=== PATIENT | male | born 1950 | race Caucasian/White ===

== ENCOUNTER 2016-07-06 18:49 | Emergency (ER) | payer BC, OTHER ==
[2016-07-06 19:26] VITALS: BMI 27.3
--- NOTE | 2016-07-06 20:36 | PDOC ---
History of Present Illness - General History Source: Patient Exam Limitations: No Limitations - History of Present Illness Initial Comments: 07/06/16 20:44 The patient is a 66 year old male with significant past medical history of ureterolithiasis s/p stents who presents to the ED with 24 hours of right-sided testicular pain. Patient reports he has been taking aleve with improvement. However, he noted increase swelling and redness to area with increasing pain. He denies any trauma to the area. Patient also denies flank pain, dysuria, hematuria, urgency, and frequency The patient denies fever, chills, cough, SOB, chest pain, and palpitations. The patient denies abdominal pain, nausea, vomiting, and diarrhea. Allergies: NKDA Social History: No alcohol, tobacco, or drug use reported. Past Surgical History: s/p kidney stents PCP: Dr. Raymundo Ahumada <Cesia Newton - Last Filed: 07/06/16 20:44> - General History Source: Patient <Max Jones - Last Filed: 07/06/16 21:32> - General Chief Complaint: Pain, Acute Stated Complaint: PCP SENT/TESTICULAR PAIN Time Seen by Provider: 07/06/16 20:26 Past History <Cesia Newton - Last Filed: 07/06/16 20:44> - Past Medical History Anemia: No Asthma: No Cancer: No Cardiac Disorders: No CVA: No COPD: No CHF: No Dementia: No Diabetes: No GI Disorders: No Disorders: No HTN: No Hypercholesterolemia: No Kidney Stones: Yes (LEFT STENT 10/11/14) Liver Disease: No Seizures: No Thyroid Disease: No - Surgical History Abdominal Surgery: No Appendectomy: No Cardiac Surgery: No Cholecystectomy: No Lung Surgery: No Neurologic Surgery: No Orthopedic Surgery: No - Psycho/Social/Smoking Cessation Hx Anxiety: Yes Suicidal Ideation: No Smoking Status: Yes Smoking History: Never smoked Have you smoked in the past 12 months: No Number of Cigarettes Smoked Daily: 0 If you are a former smoker, when did you quit?: 50 yrs ago Hx Alcohol Use: No Drug/Substance Use Hx: No Substance Use Type: None Hx Substance Use Treatment: No <Max Jones - Last Filed: 07/06/16 21:32> - Past Medical History Allergies/Adverse Reactions: Allergies Allergy/AdvReac Type Severity Reaction Status Date / Time No Known Allergies Allergy Verified 07/06/16 19:23 Home Medications: Ambulatory Orders Sertraline HCl [Zoloft -] 150 mg PO HS 11/26/11 Bupropion HCl [Wellbutrin Xl -] 150 mg PO DAILY 09/04/14 Gabapentin [Neurontin] 600 mg PO HS 09/04/14 Trazodone HCl [Desyrel -] 50 mg PO HS 09/04/14 Finasteride [Proscar -] 5 mg PO DAILY #30 tablet 10/11/14 Tamsulosin HCl [Flomax -] 0.4 mg PO DAILY #30 capsule 10/11/14 Tramadol HCl [Ultram -] 100 mg PO Q6H #20 tablet 10/11/14 Meth/Meblue/Sod Phos/Psal/Hyos [Uribel Capsule] 1 each PO BID 11/01/14 Sulfamethoxazole/Trimethoprim [Bactrim Ds Tablet] 1 each PO BID #30 tablet 11/01 Review of Systems - Review of Systems Able to Perform ROS?: Yes Comments:: 07/06/16 20:44 CONSTITUTIONAL: Absent: fever, chills, diaphoresis, generalized weakness, malaise, loss of appetite HEENT: Absent: rhinorrhea, nasal congestion, throat pain, throat swelling, difficulty swallowing, mouth swelling, ear pain, eye pain, visual Changes CARDIOVASCULAR: Absent: chest pain, syncope, palpitations, irregular heart rate, lightheadedness , peripheral edema RESPIRATORY: Absent: cough, shortness of breath, dyspnea with exertion, orthopnea, wheezing, stridor, hemoptysis GASTROINTESTINAL: Absent: abdominal pain, abdominal distension, nausea, vomiting, diarrhea, constipation, melena, hematochezia GENITOURINARY: +right testicular pain, swelling, and redness Absent: dysuria, frequency, urgency, hesitancy, hematuria, flank pain MUSCULOSKELETAL: Absent: myalgia, arthralgia, joint swelling SKIN: Absent: rash, itching, pallor NEUROLOGIC: Absent: headache, focal weakness or paresthesias, dizziness, unsteady gait, seizure, mental status changes, bladder or bowel incontinence <Cesia Newton - Last Filed: 07/06/16 20:44> *Physical Exam - Vital Signs Last Vital Signs Temp Pulse Resp BP Pulse Ox 98.5 F 96 H 18 151/85 100 07/06/16 19:23 07/06/16 19:23 07/06/16 19:23 07/06/16 19:23 07/06/16 19:23 - Physical Exam Comments: 07/06/16 20:45 GENERAL: Well developed, well nourished. Awake and alert. No acute distress. HEENT: Normocephalic, atraumatic. PERRLA, EOMI. No conjunctival pallor. Sclera are non- icteric. Moist mucous membranes. Oropharynx is clear. NECK: Supple. Full ROM. No JVD. Carotid pulses 2+ and symmetric, without bruits. No thyromegaly. No lymphadenopathy. CARDIOVASCULAR: Regular rate and rhythm. No murmurs, rubs, or gallops. Distal pulses are 2+ and symmetric. PULMONARY: No evidence of respiratory distress. Lungs clear to auscultation bilaterally. No wheezing, rales or rhonchi. ABDOMINAL: Soft. Non-tender. Non-distended. No rebound or guarding. No organomegaly. Normoactive bowel sounds. : Right testicle is bigger than left testicle. Right sided testicular tenderness. Scrotum is erythematous. MUSCULOSKELETAL Normal range of motion at all joints. No bony deformities or tenderness. No CVA tenderness. EXTREMITIES: No cyanosis. No clubbing. No edema. No calf tenderness. SKIN: Warm and dry. Normal capillary refill. No rashes. No jaundice. NEUROLOGICAL: Alert, awake, appropriate. Cranial nerves 2-12 intact. Moving all extremities. No gross focal neurological deficits. PSYCHIATRIC: Cooperative. Good eye contact. Appropriate mood and affect. <Cesia Newton - Last Filed: 07/06/16 20:44> - Vital Signs Last Vital Signs Temp Pulse Resp BP Pulse Ox 98.5 F 96 H 18 151/85 100 07/06/16 19:23 07/06/16 19:23 07/06/16 19:23 07/06/16 19:23 07/06/16 19:23 <Max Jones - Last Filed: 07/06/16 21:32> Medical Decision Making - Medical Decision Making 07/06/16 21:31 Dr. Jones: The scribe's documentation has been prepared under my direction and personally reviewed by me in its entirery. I confirm that the note above accurately reflects all work, treatment, procedures, and medical decision making performed by me. Patient found jt have a right sided epididymitis. patient will antibiotics here in the department. Advised to follow Up with his primary care physic <Max Jones - Last Filed: 07/06/16 21:32> *DC/Admit/Observation/Transfer - Attestations Scribe Attestion: 07/06/16 20:45 Documentation prepared by Cesia Newton, acting as medical assisting program director for Max Jones MD <Cesia Newton - Last Filed: 07/06/16 20:44> - Discharge Dispostion Admit: No <Max Jones - Last Filed: 07/06/16 21:32> Diagnosis at time of Disposition: Acute epididymitis - Discharge Dispostion Disposition: HOME Condition at time of disposition: Stable - Referrals Referrals: Raymundo Ahuamda MD [Primary Care Provider] - - Patient Instructions Printed Discharge Instructions: DI for Epididymitis
[2016-07-06] MEDS ORDERED: KETOROLAC TROMETHAMINE 60 MG/2 ML VIAL IM ONE (21:12)
[2016-07-06] MEDS ORDERED: AZITHROMYCIN 250 MG TABLET (FP) PO ONE (21:29)
[2016-07-06] MEDS ORDERED: IBUPROFEN 400 MG TABLET (FP) PO ONE ×2 (21:30→21:38)
[2016-07-06] MEDS ORDERED: AZITHROMYCIN 1 GM PACKET ONE (21:37)
[2016-07-06] MEDS ORDERED: cefTRIAXone SODIUM 1 GM VIAL ONE (21:38)
[2016-07-06] MEDS ORDERED: LIDOCAINE HCL/PF 1% SDV 5ML VIAL ONE (21:40)
[2016-07-06 22:47] VITALS: BP 122/74; PULSE 78; TEMP 98.6
--- NOTE | 2016-07-10 10:27 | EKG ---
Test Reason : Blood Pressure : / mmHG Vent. Rate : 085 BPM Atrial Rate : 085 BPM P-R Int : 140 ms QRS Dur : 084 ms QT Int : 336 ms P-R-T Axes : 052 025 022 degrees QTc Int : 399 ms NORMAL SINUS RHYTHM POSSIBLE LEFT ATRIAL ENLARGEMENT NONSPECIFIC ST ABNORMALITY NO PREVIOUS ECGS AVAILABLE Confirmed by TIMBO SUE MD ([id number]) on 07/10/2016 10:27:35 AM Referred By: Confirmed By:TIMBO SUE MD
== END 2016-07-06 22:44 | disposition home or self-care (01) ==
LOC: JERFT 18:49 → JER 18:49
DX: N45.1 Epididymitis (principal); Z87.442 Personal history of urinary calculi; Z87.891 Personal history of nicotine dependence
CPT/HCPCS: 76870-TC; 93005; 93010; 96372; 99283-25

== ENCOUNTER 2017-05-31 23:05 | Emergency (ER) | payer OTHER ==
[2017-05-31 23:15] VITALS: BP 143/84; PULSE 71; TEMP 97.6; BMI 28.0
--- NOTE | 2017-06-01 00:36 | PDOC ---
History of Present Illness - General Chief Complaint: Pain Stated Complaint: L FOOT PAIN/SWELLING Time Seen by Provider: 05/31/17 23:08 - History of Present Illness Initial Comments: 67-year-old man with a long history of kidney stones but no other significant past medical history presents with left foot injury: Patient was in the [place] earlier today when he struck the lateral aspect of the left foot against a bed frame as he was walking in a hotel room. Patient states that he subsequently fell but did not strike his head/neck; no loss of consciousness and no residual pain from the fall (except for left foot pain). He was able to ambulate reasonably well to the airport. He did not elevate his foot during the flight and noted significant increase in pain when he arrived here. No previous history of left foot injury. Past History - Past Medical History Allergies/Adverse Reactions: Allergies Allergy/AdvReac Type Severity Reaction Status Date / Time No Known Allergies Allergy Verified 07/06/16 19:23 Home Medications: Ambulatory Orders Sertraline HCl [Zoloft -] 150 mg PO HS 11/26/11 Bupropion HCl [Wellbutrin Xl -] 150 mg PO DAILY 09/04/14 Gabapentin [Neurontin] 600 mg PO HS 09/04/14 Trazodone HCl [Desyrel -] 50 mg PO HS 09/04/14 Finasteride [Proscar -] 5 mg PO DAILY #30 tablet 10/11/14 Tamsulosin HCl [Flomax -] 0.4 mg PO DAILY #30 capsule 10/11/14 Tramadol HCl [Ultram -] 100 mg PO Q6H #20 tablet 10/11/14 Meth/Meblue/Sod Phos/Psal/Hyos [Uribel Capsule] 1 each PO BID 11/01/14 Anemia: No Asthma: No Cancer: No Cardiac Disorders: No CVA: No COPD: No CHF: No Dementia: No Diabetes: No GI Disorders: No Disorders: No HTN: No Hypercholesterolemia: No Kidney Stones: Yes (LEFT STENT 10/11/14) Liver Disease: No Seizures: No Thyroid Disease: No - Surgical History Abdominal Surgery: No Appendectomy: No Cardiac Surgery: No Cholecystectomy: No Lung Surgery: No Neurologic Surgery: No Orthopedic Surgery: No - Suicide/Smoking/Psychosocial Hx Smoking Status: Yes Smoking History: Unknown if ever smoked Have you smoked in the past 12 months: No Number of Cigarettes Smoked Daily: 0 If you are a former smoker, when did you quit?: 50 yrs ago Information on smoking cessation initiated: No Hx Alcohol Use: No Drug/Substance Use Hx: No Substance Use Type: None Hx Substance Use Treatment: No Review of Systems - Review of Systems Able to Perform ROS?: Yes Comments:: 12 point review of systems is negative except for what is noted in the history of present illness *Physical Exam - Vital Signs Last Vital Signs Temp Pulse Resp BP Pulse Ox 97.6 F 71 14 143/84 97 05/31/17 23:12 05/31/17 23:12 05/31/17 23:12 05/31/17 23:12 05/31/17 23:12 - Physical Exam Comments: GENERAL: Adult male, alert and oriented 3, in no acute distress HEAD: Normal with no signs of trauma. EYES: PERRLA, EOMI, sclera anicteric, conjunctiva clear. ENT: Ears normal, nares patent, oropharynx clear without exudates. Dry mucous membranes. NECK: Normal range of motion, supple without lymphadenopathy, JVD, or masses. LUNGS: Breath sounds equal, clear to auscultation bilaterally. No wheezes, and no crackles. HEART:Regular rate and rhythm, normal S1 and S2 without murmur, rub or gallop. .EXTREMITIES :Left foot: Moderate edema/marked tenderness/no deformity or ecchymosis lateral midfoot Dorsalis pedis pulse palpable at midfoot; no sensory or motor deficit; distal extremities warm and dry with good capillary refill Remainder of extremity exam is normal: NEUROLOGICAL: Cranial nerves II through XII grossly intact. Normal speech. No focal neurological deficits. MUSCULOSKELETAL: Back non-tender to palpation, no CVA tenderness SKIN: Warm, Dry, normal turgor, no rashes or lesions noted. Medical Decision Making - Medical Decision Making Left foot x-ray shows minimally displaced midshaft fracture, fifth metatarsal No other fracture/dislocation noted Using Ortho-Glass material, posterior lower leg splint fashioned and secured with Trevor wraps. Distal neurovascular functioning intact after placement of the posterior leg splint. Patient discharged with crutches for use until seen by orthopedist. Patient has been seen by [facility] orthopedic group in the past and will be given referral information to contact them in the next 24 hours for follow-up. Patient will elevate and ice the foot as much as possible over the next 1-2 days. He will use ibuprofen/acetaminophen/naproxen as needed for pain. *DC/Admit/Observation/Transfer Diagnosis at time of Disposition: Metatarsal bone fracture Qualifiers: Encounter type: initial encounter Metatarsal bone: fifth Fracture type: closed Fracture alignment: nondisplaced Laterality: left Qualified Code(s): S92.355A - Nondisplaced fracture of fifth metatarsal bone, left foot, initial encounter for closed fracture - Discharge Dispostion Disposition: HOME Condition at time of disposition: Stable - Referrals Referrals: Yoni Rausch MD [Staff Physician] - Call tomorrow - Patient Instructions Printed Discharge Instructions: DI for Foot Fracture Additional Instructions: keep splint in place elevate left foot for the next 2 days Acetaminophen/ibuprofen/naproxen as needed for pain crutches as needed for ambulation followup with orthopedic group(Dr Rausch group) within 5 days - Post Discharge Activity
== END 2017-06-01 01:53 | disposition home or self-care (01) ==
LOC: FER 23:05
PROC: 2W3RX1Z Immobilization of Left Lower Leg using Splint (ICD-10-PCS; principal; 2017-05-31)
DX: S92.355A Nondisplaced fracture of fifth metatarsal bone, left foot, initial encounter for closed fracture (principal); W22.8XXA Striking against or struck by other objects, initial encounter; Y93.89 Activity, other specified; Y92.59 Other trade areas as the place of occurrence of the external cause; Z87.891 Personal history of nicotine dependence
CPT/HCPCS: 73630-TC-LT; 99282-25

== ENCOUNTER 2021-12-14 04:32 | Day surgery (SDC) | payer OTHER ==
[2021-12-13 12:42] VITALS: BMI 25.1
[2021-12-14] MEDS ORDERED: LIDOCAINE HCL/PF 2% SDV 5ML VIAL ONE (10:37)
[2021-12-14] MEDS ORDERED: ceFAZolin SODIUM 1 GM VIAL ONE (10:37)
[2021-12-14] MEDS ORDERED: MIDAZOLAM HCL 2 MG/2 ML SINGLE DOSE VIAL ONE (10:38)
[2021-12-14] MEDS ORDERED: PROPOFOL 20 ML ONE ×2 (10:38)
[2021-12-14] MEDS ORDERED: ceFAZolin SODIUM 1 GM VIAL IVPB ONE (10:45)
[2021-12-14] MEDS ORDERED: ELECTROLYTE-148 SOLN 1,000 ML IV SCH (10:45)
[2021-12-14] MEDS ORDERED: LIDOCAINE HCL 2% JELLY 10 ML CARTRIDGE ONE (10:46)
[2021-12-14] MEDS ORDERED: LIDOCAINE HCL 2% JELLY 10 ML CARTRIDGE TP ONE (10:47)
[2021-12-14 11:52] VITALS: BP 116/85; PULSE 76; TEMP 98.7
== END 2021-12-14 12:11 | disposition home or self-care (01) ==
LOC: JASU-SURG 04:32
PROVIDERS: ATTEND Urology
PROC: 0T7D8DZ Dilation of Urethra with Intraluminal Device, Via Natural or Artificial Opening Endoscopic (ICD-10-PCS; principal; 2021-12-14 10:30)
DX: N40.0 Benign prostatic hyperplasia without lower urinary tract symptoms (principal)

== ENCOUNTER → 2025-03-19 | Day surgery (SDC) | payer OTHER ==
[2025-03-17 16:07] VITALS: BMI 25.8
[2025-03-19 10:04] VITALS: BP 103/56; PULSE 59; RESP 16; TEMP 97.1
== END | disposition home or self-care (01) ==
LOC: FASU-ENDO 07:52
PROVIDERS: ATTEND Internal Medicine Gastroenterology
PROC: 0DJD8ZZ Inspection of Lower Intestinal Tract, Via Natural or Artificial Opening Endoscopic (ICD-10-PCS; principal; 2025-03-19 09:12)
DX: Z12.11 Encounter for screening for malignant neoplasm of colon (principal); K57.30 Diverticulosis of large intestine without perforation or abscess without bleeding; Z86.0100 Personal history of colon polyps, unspecified